=== PATIENT | female | born 1945 | race Caucasian/White ===

== ENCOUNTER 2018-10-03 09:28 | Day surgery (SDC) | payer OTHER ==
--- OUTSIDE RECORDS SUMMARY | 2018-10-03 09:43 | XMS REPORT | Clinical Summary ---
:1945 Author Organization [facility] Address [address] [place] [address] Care Team Providers Name Role Phone Omari Kennedy MD Primary Care Provider Allergies Active Allergy Reactions Severity Noted Date Comments Fluticasone 04/01/2017 Muscle spasms Propion-Salmeterol Meperidine 02/16/2017 Levofloxacin Other (See Comments) 04/03/2017 Burning in face. Zycncie-Xry-Ddh Reductase 02/16/2017 Inhibitors Sulfa (Sulfonamide 02/16/2017 Antibiotics) Budesonide-Formoterol 04/22/2017 Tramadol 02/16/2017 Medications Medication Sig Dispensed Refills Start Date End Date Status pantoprazole Take 40 mg by 0 Active (PROTONIX) 40 MG mouth daily. EC tablet alendronate Take 35 mg by 0 Active (FOSAMAX) 35 MG mouth every 7 tablet days. ( Wednesday )Take in the morning with a full glass of water on an empty stomach, do NOT take anything else by mouth or lie down for the next 30 min. ezetimibe (ZETIA) Take 10 mg by 0 Active 10 mg tablet mouth every evening. cholecalciferol, Take 2,000 Units 0 Active vitamin D3, by mouth daily. (VITAMIN D3) 2,000 unit capsule capsule multivitamin Take 1 tablet by 0 Active (THERAGRAN) tablet mouth daily. irbesartan 0 12/28/2017 Active (AVAPRO) 150 MG tablet azelastine 1 spray into each 0 Active (ASTELIN) 137 mcg nostril 2 (two) (0.1 %) nasal times a day. Use spray in each nostril as directed fexofenadine Take 180 mg by 0 Active (DIANNA) 180 MG mouth daily. tablet ranitidine Take 150 mg by 0 Active (ZANTAC) 150 MG mouth 2 (two) tablet times a day. ipratropium-albute Take 3 mL by 0 Active rol (DUO-NEB) nebulization 4 0.5-2.5 mg/mL (four) times a nebulizer day. umeclidinium-vilan Inhale. 0 Active terol (ANORO ELLIPTA) 62.5-25 mcg/actuation blister with device fluticasone USE 1 INHALATION 30 each 0 08/29/2018 Active propionate TWICE A DAY (FLOVENT DISKUS) 250 mcg/actuation blister with device valsartan (DIOVAN) Take 160 mg by 0 Discontinued 160 MG tablet mouth daily. 8 loratadine Take 10 mg by 0 Discontinued (CLARITIN) 10 mg mouth daily. 8 tablet aspirin (ECOTRIN) Take 81 mg by 0 Discontinued 81 MG enteric mouth 2 (two) 8 coated tablet times a week. FLOVENT DISKUS 250 USE 1 INHALATION 180 each 1 09/06/2017 Discontinued mcg/actuation TWICE A DAY 8 blister with device ranitidine 0 08/11/2017 Discontinued (ZANTAC) 150 MG 8 tablet predniSONE 4 tabs daily X 3 32 tablet 0 01/10/2018 Discontinued (DELTASONE) 10 mg days, 3 tabs 8 tablet daily X 3 days, 2 tabs daily X 3 days, 1 tab daily X 3 days, then 1/2 tab daily X 3 days. predniSONE 4 tabs daily X 3 32 tablet 0 01/10/2018 (DELTASONE) 10 mg days, 3 tabs 8 tablet daily X 3 days, 2 tabs daily X 3 days, 1 tab daily X 3 days, then 1/2 tab daily X 3 days. fluticasone USE 1 INHALATION 3 each 1 01/17/2018 Discontinued (FLOVENT DISKUS) TWICE A DAY 9 250 mcg/actuation blister with device INCRUSE ELLIPTA USE 1 INHALATION 90 each 2 02/03/2018 Discontinued 62.5 mcg/actuation DAILY 9 blister with device umeclidinium-vilan Inhale 1 puff 90 each 1 04/27/2018 terol (ANORO daily for 90 9 ELLIPTA) 62.5-25 days. mcg/actuation blister with device ipratropium-albute Take 3 mL by 270 mL 0 05/12/2018 rol (DUO-NEB) nebulization 9 0.5-2.5 mg/mL every 8 (eight) nebulizerIndicatio hours for 30 ns: Chronic days. obstructive pulmonary disease, unspecified COPD type (HCC) fluticasone USE 1 INHALATION 3 each 2 08/29/2018 Discontinued propionate TWICE A DAY 9 (FLOVENT DISKUS) 250 mcg/actuation blister with device fluticasone USE 1 INHALATION 30 each 0 08/29/2018 Discontinued propionate TWICE A DAY 9 (FLOVENT DISKUS) 250 mcg/actuation blister with device Active Problems Problem Noted Date Pulmonary hypertension 05/12/2018 Allergic sinusitis 06/09/2017 Dyspnea 04/01/2017 Asthma with acute exacerbation 03/03/2017 Chronic obstructive pulmonary disease 03/03/2017 Encounters Date Type Specialty Care Team Description 08/29/2018 Orders Only Pulmonology Faby Vitale MA 08/29/2018 Orders Only Pulmonology Faby Vitale MA 08/29/2018 Telephone Pulmonology King Brown MD 08/18/2018 Office Visit Pulmonology King Brown Uncomplicated asthma, unspecified asthma severity, unspecified whether persistent (Primary Dx); MD Daniel Allergic sinusitis 05/19/2018 Hospital Encounter Procedural King Brown Pulmonary Cardiology MD Daniel hypertension (HCC) 05/12/2018 Office Visit Pulmonology King Brown Chronic obstructive pulmonary disease, unspecified COPD type (HCC) (Primary Dx); MD Daniel R/O Pulmonary hypertension ([facility]); Lung nodule- RLL stable since March 2017 05/09/2018 Hospital Encounter Radiology King Brown COPD with exacerbation ([facility]); MD Daniel Dyspnea, unspecified type with exertional hypoxia, etiology unclear; Dyspnea, unspecified type 04/27/2018 Orders Only Pulmonology Susu Mcgovern MA 04/21/2018 Office Visit Pulmonology King Brown COPD with exacerbation ( HCC) (Primary Dx); MD Daniel Dyspnea, unspecified type with exertional hypoxia, etiology unclear 02/03/2018 Refill Pulmonology King Brown MD 01/17/2018 Orders Only Pulmonology Pamela Ruiz MA 01/17/2018 Telephone Pulmonology King Brown MD 01/14/2018 Orders Only Pulmonology Uriel Rodriguez MD 01/10/2018 Clinical Support Pulmonology King Brown Chronic obstructive pulmonary disease from chronic asthma with acute exacerbation; MD Daniel Chronic obstructive pulmonary disease, unspecified COPD type Nirmal Dick 01/10/2018 Office Visit Pulmonology King Brown Chronic obstructive pulmonary disease from chronic asthma with acute exacerbation (Primary Dx); MD Daniel Allergic sinusitis 10/07/2017 Office Visit Pulmonology King Brown MD pulmonary disease, unspecified COPD type (Primary Dx) after 10/02/2017 Family History Medical History Relation Name Comments Brain cancer Father Depression Mother Diabetes Mother Hypertension Mother Relation Name Status Comments Father Mother Social History Tobacco Use Types Packs/Day Years Used Date Never Smoker Smokeless Tobacco: Never Used Alcohol Use Drinks/Week oz/Week Comments No Sex Assigned at Date Recorded Not on file Job Start Date Occupation Industry Not on file Not on file Not on file Travel History Travel Start Travel End No recent travel history available. Last Filed Vital Signs Vital Sign Reading Time Taken Blood Pressure 115/56 08/18/2018 1:21 PM CDT Pulse 84 08/18/2018 1:21 PM CDT Temperature 36.9 C (98.5 F) 08/18/2018 1:21 PM CDT Respiratory Rate 14 08/18/2018 1:21 PM CDT Oxygen Saturation 95% 08/18/2018 1:21 PM CDT Inhaled Oxygen Concentration - - Weight 112 kg (247 lb) 08/18/2018 1:21 PM CDT Height 167.6 cm (5' 6") 05/12/2018 2:46 PM [facility] Body Mass Index 39.87 05/12/2018 2:46 PM [facility] Plan of Treatment Date Type Specialty Care Team Description 11/22/2018 Office Visit Pulmonology King Brown MD [address] [id number] Health Maintenance Due Date Last Done Comments COLONOSCOPY SCREENING 1996 SHINGLES VACCINES (#1) 1996 65+ PNEUMOCOCCAL VACCINE (1 of 2 - 07/28/2011 PCV13) BREAST CANCER SCREENING 05/31/2016 05/31/2014, 11/22/2012, 11/12/2011, Additional history exists INFLUENZA VACCINE 11/17/2018 Procedures Procedure Name Priority Date/Time Associated Diagnosis Comments ECHOCARDIOGRAM 2D Routine 05/19/2018 10:22 Pulmonary Results for this LIMITED AM [facility] hypertension (HCC) procedure are in the results section. CT CHEST W CONTRAST Routine 05/09/2018 1:11 COPD with Results for this PM [facility] exacerbation (HCC) procedure are in Dyspnea, unspecified the results type section. ESTIMATED GFR Routine 05/09/2018 12:20 Results for this PM [facility] procedure are in the results section. CREATININE, WHOLE Routine 05/09/2018 12:20 Results for this BLOOD PM [facility] procedure are in the results section. PULMONARY FUNCTION Routine 01/03/2018 TEST after 10/02/2017 Results Cv echo 2d limited or follow up study (05/19/2018 10:22 AM [facility]) Velocity Ratio (V1/V2) 1.09 m/s [facility] IVS,d 1.24 cm [facility] Ao root annulus 2.47 cm [facility] EF 56.45 % [facility] LVPWD,d 1.35 cm [facility] AoV Mean PG 2.82 mmHg [facility] AV LVOT peak gradient 7.31 mmHg [facility] MV valve area p 1/2 method 2.73 cm2 [facility] E/A ratio 0.79 [facility] E wave decelartion time 278.26 msec [facility] IVRT 86.51 msec [facility] LVOT Diam,S 1.95 cm [facility] LVOT area 2.98 cm2 [facility] LVOT Vmax 1.35 m/s [facility] LVOT VTI 0.26 m [facility] RVOT Vmax 0.70 m/s [facility] AoV Peak PG 6.18 mmHg [facility] MV Peak E Zion 0.67 m/s [facility] MV stenosis pressure 1/2 time 80.70 ms [facility] MV Peak A [place] 0.85 m/s [facility] AoV Area, Vmax 3.26 cm2 [facility] AoV Area, VTI 3.23 cm2 [facility] AoV Vmax 1.24 m/s [facility] IVS/LVPW,2D 0.92 [facility] LA Area d A4C 14.76 cm2 [facility] LV,d 4.04 cm [facility] LV,s 2.87 cm [facility] TR Vpeak 2.68 mm/s [facility] MV E A ratio 0.79 [facility] TR pk grad 28.03 mmHg [facility] MR peak grad 28.83 mmHg [facility] LV SYS VOL 31.28 ml [facility] LV SANTIAGO VOL 71.82 ml HM [facility] LV SV Teich 2D 40.54 ml [facility] LV Vol s Teich PSAX 31.28 ml [facility] RVOT pk grad 1.99 mmHg [facility] AoV Vmn 0.77 [facility] LA Ao Ratio Mmode 1.72 [facility] LV FS Cube 2D 29.13 [facility] LV FS Teich 2D 29.13 [facility] AoV VTI 0.24 m [facility] BSA Landry 0.00 m2 [facility] BSA 0.00 m2 [facility] BSA Haycock 0.00 m2 [facility] LV EF,2D 64.41 % [facility] MR Vmax 2.68 m/s [facility] MV AE ratio 1.27 [facility] LVOT Vmn 0.75 [facility] Pt Size 0.00 [facility] Pt Wt 0.00 [facility] Aov area Vmn 2.94 cm2 [facility] LA Vol d MOD A4C 31.04 ml [facility] LVOT mean grad 2.83 mmHg [facility] MAX Pred HR 148.19 [facility] 85 of MPHR 125.96 [facility] Calc MPHR 148.19 bpm [facility] LV SV Cube 2D 42.58 ml [facility] LV vol d cube 2D 66.11 ml [facility] LV vol s cube 2D 23.53 ml [facility] MV Decel slope 2.41 m/s2 [facility] Pred Exer Dur R1 6.63 [facility] Pred METS R1 5.36 [facility] Specimen Narrative Performed At Left Ventricular ejection fraction is 55 - 60% [facility] There is mild left ventricular concentric hypertrophy Stage Ia diastolic dysfunction, impaired relaxation with increased filling pressure. The aortic valve appears normal Trace mitral valve regurgitation Mild tricuspid valve regurgitation The pulmonic valve appears normal Normal right ventricular size, wall thickness and global function RVSP is 32.13 mmHg Performing Organization Address City/State/Zipcode Phone Number [facility] [address] [place] [address] CT Chest W Contrast (05/09/2018 1:11 PM [facility]) Specimen Narrative Performed At CT CHEST W CONTRAST [facility] CLINICAL INDICATION:J44.1 Chronic obstructive pulmonary disease with (acute) exacerbation, R06.00 Dyspneaunspecified, Shortness of breath TECHNIQUE:Multidetector CT imaging of the chest was performed following the intravenous administration of iodinated contrast with automated exposure control and/or iterative reconstruction techniques to radiation dose. COMPARISON:04/01/2017 FINDINGS: LUNGS:A stable 3 x 4 mm pulmonary nodule involves the medial right lower lobe (series 3 image 80) unchanged from prior, probably postinflammatory. No specific follow-up is recommended in a patient of average risk. 2 thin-walled cyst nonspecific cysts are noted in the right lower lobe as well which may be postinflammatory. Prominent respiratory artifact on prior exam has resolved. PLEURA:No pleural effusion or pneumothorax. LYMPH NODES:No pathological adenopathy in the elvira, axilla or mediastinum. CARDIOVASCULAR:Heart is borderline enlarged without effusion.The aorta is normal in caliber. Pulmonary arteries are mildly enlarged reflecting mild pulmonary arterial hypertension. MEDIASTINUM:No mass or hematoma. Trachea and central airways are patent. CHEST WALL:Unremarkable. BONES: Mild degenerative changes are present. UPPER ABDOMEN:Moderate hiatal hernia is noted with nonspecific thickening of the distal esophagus with changes of sleeve gastrectomy as before. IMPRESSION: 1. Stable probable less than 4 mm postinflammatory right lower lobe pulmonary nodule as described. 2. No interstitial changes of COPD. 3. Mild pulmonary arterial hypertension. Moderate hiatal hernia, changes sleeve gastrectomy and other incidental findings as described. Thank you for allowing us to participate in the care of your patient. [facility]-[id number] Procedure Note Interface, Radiology Results Incoming - 05/09/2018 1:[address] CHEST W CONTRAST CLINICAL INDICATION: J44.1 Chronic obstructive pulmonary disease with (acute) exacerbation, R06.00 Dyspnea unspecified, Shortness of breath TECHNIQUE: Multidetector CT imaging of the chest was performed following the intravenous administration of iodinated contrast with automated exposure control and/or iterative reconstruction techniques to radiation dose. COMPARISON: 04/01/2017 FINDINGS: LUNGS: A stable 3 x 4 mm pulmonary nodule involves the medial right lower lobe (series 3 image 80) unchanged from prior, probably postinflammatory. No specific follow-up is recommended in a patient of average risk. 2 thin-walled cyst nonspecific cysts are noted in the right lower lobe as well which may be postinflammatory. Prominent respiratory artifact on prior exam has resolved. PLEURA: No pleural effusion or pneumothorax. LYMPH NODES: No pathological adenopathy in the elvira, axilla or mediastinum. CARDIOVASCULAR: Heart is borderline enlarged without effusion. The aorta is normal in caliber. Pulmonary arteries are mildly enlarged reflecting mild pulmonary arterial hypertension. MEDIASTINUM: No mass or hematoma. Trachea and central airways are patent. CHEST WALL: Unremarkable. BONES: Mild degenerative changes are present. UPPER ABDOMEN: Moderate hiatal hernia is noted with nonspecific thickening of the distal esophagus with changes of sleeve gastrectomy as before. IMPRESSION: 1. Stable probable less than 4 mm postinflammatory right lower lobe pulmonary nodule as described. 2. No interstitial changes of COPD. 3. Mild pulmonary arterial hypertension. Moderate hiatal hernia, changes sleeve gastrectomy and other incidental findings as described. Thank you for allowing us to participate in the care of your patient. [facility]-[id number] Performing Organization Address City/State/Zipcode Phone Number [facility] [address] [place] [address] Estimated GFR (05/09/2018 12:20 PM [facility]) Estimated GFR 67 mL/min/1.73 [place] [facility] Comment: [address] CatergoryUnitsInterpretation [facility] G1 >=90 Normal or high G2 60-89Mildly decreased Q0d49-30Vzpnbz to moderately decreased T3z59-30Vdhanptbqw to severely decreased G4 15-29Severely decreased G5 <15Kidney failure The eGFR was calculated using the Chronic Kidney Disease Epidemiology Collaboration (CKD-EPI) equation. Interpretation is based on recommendations of the National Kidney Foundation-Kidney Disease Outcomes Quality Initiative (NKF-KDOQI) published in 2014. Specimen Plasma specimen Performing Organization Address City/[facility]/Zipcode Phone Number [facility] DEPARTMENT OF PATHOLOGY [address] [facility] [place] [address] AND GENOMIC MEDIC[facility] [phone] [place] [address] HOSPITAL Creatinine, whole blood (05/09/2018 12:20 PM [facility]) Creatinine, whole 0.87 0.50 - 0.90 [facility] blood mg/dL [facility] Specimen Plasma specimen Performing Organization Address City/State/Zipcode Phone Number [facility] DEPARTMENT OF PATHOLOGY [address] [place] [address] AND [facility]ICINE [facility] [phone] Pulmonary function tests, complete (01/03/2018) Narrative Performed At after 10/02/2017 Insurance Payer Benefit Plan / Subscriber ID Effective Dates Phone Address Type Group FOR LIFE xxxxxxxxxx 2005-Present MEDICARE MEDICARE PART A xxxxxxxxxxx 2011-Present [place], [place] Medicare AND B (Home) [place] [address] Advance Directives Patient has advance care planning documents on file. For more information, please contact:Shyam Thomas[address] [place] [address]
[2018-10-03] MEDS ORDERED: NS 0.9% VIAL 10 ML ONE (09:51)
[2018-10-03] MEDS ORDERED: BALANCED SALT IRRIG PLAIN 500 ML BTL IRR ONE (09:52)
[2018-10-03] MEDS ORDERED: DUOVISC 1 KIT OPTH ONE (09:52)
[2018-10-03] MEDS ORDERED: EPINEPHRINE/PF 1 MG/ML AMP ONE (09:52)
[2018-10-03] MEDS ORDERED: MOXIFLOXACIN HCL 10 DROPS/ML **OR USE OPTH ONE (09:53)
[2018-10-03] MEDS ORDERED: CYCLOPENTOLATE 1% OPTH 2 ML ONE (10:02)
[2018-10-03] MEDS ORDERED: LIDOCAINE 2% MPF 5 ML VIAL ONE (10:02)
[2018-10-03] MEDS ORDERED: BUPIVACAINE 0.25% PF 10 ML VIAL ONE (10:02)
[2018-10-03] MEDS ORDERED: LIDOCAINE HCL/PF 3.5% OPTH GEL ONE (10:02)
[2018-10-03] MEDS ORDERED: NA CHLORIDE 0.9% 500 ML ONE (10:02)
[2018-10-03] MEDS ORDERED: PHENYLEPHRINE 10% OPTH 5ML ONE (10:03)
[2018-10-03] MEDS ORDERED: PHENYLEPHRINE 10% OPTH 5ML OPTH ONE (10:10)
[2018-10-03] MEDS ORDERED: CYCLOPENTOLATE 1% OPTH 2 ML OPTH ONE ×2 (10:10→10:15)
[2018-10-03] MEDS: PHENYLEPHRINE 10% OPTH 5ML OPTH ONE ×2 (10:15→11:40)
[2018-10-03] MEDS ORDERED: LIDOCAINE 1% MPF 2 ML AMPULE ONE (10:30)
[2018-10-03] MEDS ORDERED: MIDAZOLAM HCL 2 MG/2 ML INJ ONE (11:44)
[2018-10-03] MEDS ORDERED: FENTANYL CITR 100 MCG/2 ML ONE ×2 (11:44→12:14)
[2018-10-03] MEDS: TETRACAINE HCL 0.5% 4ML OPTH ONE ×2 (11:45→12:09)
--- NOTE | 2018-10-03 12:19 | P.BOP ---
Preoperative diagnosis: Nuclear sclerotic cataract OS Postoperative diagnosis: Same Primary procedure: Phacoemulsification with IOL OS Estimated blood loss: None Anesthesia: Local (Topical with anesthesia for cataract surgery) Complications: None Implants: [id number] +27.0 Transferred to: Other (Day surgery) Condition: Good
[2018-10-03 12:29] VITALS: BP 120/82; TEMP 98; O2SAT 100
--- NOTE | 2018-10-03 22:44 | OP ---
Date of Procedure: 10/03/2018 Surgeon: Cecilia Mccoy MD Anesthesiologist: SHANNAN Ahn and George Dutat M.D. Preoperative Diagnosis: Nuclear sclerotic cataract, OS (left eye). Operation Performed: Phacoemulsification with intraocular lens implant, left eye. Anesthesia: Per cataract surgery. Complications: None. Description Of Procedure: In the operating room the patient was prepped and draped in the usual sterile fashion for ophthalmic surgery. A lid speculum was placed in the OS. Two paracentesis sites were made superiorly and inferiorly in the limbal cornea. Viscoat was placed in the anterior chamber and a crescent blade was used to make a corneal groove and tunnel, and a keratome was used to enter the anterior chamber. Provisc was placed in the anterior chamber and a 360 degree capsulotomy was performed with a cystitome. The lens was hydrodissected with BSS and rotated freely. The lens was removed with a stop and chop technique. 14.55 phaco CDE was used to remove the lens. Residual cortex was removed with the irrigation and aspiration. Provisc was placed in the capsular bag. A SN60WF +27.0 lens was placed in the capsular bag without complications. Irrigation and aspiration were used to remove residual viscoelastic. The paracentesis sites were hydrated with BSS. The wound and paracentesis sites were inspected and found to be watertight. Vigamox 0.07 cc was placed intracamerally at the end of the procedure. The eye was irrigated with balanced salt solution. The eye was patched with a soft cotton patch and Justin metal shield. The patient was returned to day surgery in good condition. Comments: Akten was placed in the eye in Day surgery and irrigated out of the eye with BSS in the OR. Preservative-free 1% lidocaine was placed in the anterior chamber prior to Viscoat and during the surgery. The conjunctiva began ballooning superiorly and a small conjunctiva incision was made with Mario Alberto scissors adjacent to the corneal incision. Discharge Instructions: Ms. Flynn was discharged to home in good condition and is to follow up with Dr. Mccoy in the morning. AMARILIS/RONEY Voice ID: [id number] Report ID: [id number] [facility]
== END 2018-10-03 12:55 | disposition home or self-care (01) ==
LOC: OR 09:28
PROVIDERS: ATTEND Ophthalmology Retina Specialist
PROC: 08RK3JZ Replacement of Left Lens with Synthetic Substitute, Percutaneous Approach (ICD-10-PCS; principal; 2018-10-03 10:30)
DX: H25.12 Age-related nuclear cataract, left eye (principal); Z79.82 Long term (current) use of aspirin; Z79.899 Other long term (current) drug therapy
CPT/HCPCS: 66984; J0171; J2250; J3010; J2001